=== PATIENT | male | born 1950 | race Caucasian/White ===

== ENCOUNTER 2017-03-15 14:33 | Outpatient (CLI) | payer OTHER ==
--- NOTE | 2017-03-15 15:52 | RAD ---
LUMBAR SPINE THREE VIEWS: Date: 03-15-17 Comparison: None. History: Lumbar radiculopathy, back pain radiating down bilateral hips. FINDINGS: Bilateral L3, L4, and L5 pedicle screws are present with vertically oriented interlocking rods. Inter vertebral disc device noted at L3-4. No evidence for hardware failure. Lateral imaging demonstrates n o significant anterolisthesis or retrolisthesis. Bilateral laminectomy changes noted at L3, L4, and L 5. There is atherosclerotic calcification of the abdominal aorta. No acute osseous abnormality. There is disc space narrowing at L4-5 and L5-S1. IMPRESSION: Post-operative and degenerative changes as detailed above. POS: [facility]
--- NOTE | 2017-03-15 16:10 | MRI ---
MRI LUMBAR SPINE WITHOUT CONTRAST: HISTORY: M54.16, radiculopathy lumbar region. COMPARISON: None. FINDINGS: There is a lobular cyst in the superior pole left kidney. No adenopathy. Paraspinal musculature is symmetric. Aortic contour is nonaneurysmal. The conus medullaris terminates at the superior end plate of L1. The background marrow signal is normal. There is posterior spinal fusion hardware at L3-L5 with disk diskectomy changes at L3-4. There is anterolisthesis of L4 over L5 measuring approximately 4 mm. Levels are as follows: T12-L1: No significant neural foraminal or spinal canal narrowing. L1-2: No significant neural foraminal or spinal canal narrowing. Normal disks. L2-3: There is a central posterior disk protrusion extending to both paracentral areas. This narrow s the spinal canal severely, measuring approximately 3 mm. There is thickening of the ligamentum fla vum as well as hypertrophic degenerative disease of the facets. L3-4: Diskectomy changes. There appears to be some soft tissue on the exiting L3 nerve roots bilate rally which narrows the neural foramina. The spinal canal is not narrowed. L4-5: Anterolisthesis is present approximately 4 mm. Mild narrowing of the right neural foramen due to hypertrophic facet changes. L5-S1: Moderate disk desiccation. There is circumferential disk bulge. Mild bilateral neural patricia inal narrowing. IMPRESSION: 1. Posterior central and paracentral disk protrusion at L2-3 causing severe canal narrowing to appro ximately 3 mm with associated ligamentum flavum hypertrophy. There is also some 2-3 mm anterolisthes is at this level with neural foraminal narrowing. 2. Concern for possible scar along the L3-4 nerve roots bilaterally. 3. Low-grade 2-3 anterolisthesis of L4-5 with moderate bilateral neural foraminal narrowing. 4. Edema within the midline paraspinal musculature bilaterally at L4-5 and L5-S1, likely postsurgica l in nature. No definite fluid collection is appreciated, although limited without intravenous contr ast. CODE T POS: [facility]
--- NOTE | 2017-03-15 16:37 | CT ---
CT OF THE LUMBAR SPINE 03/15/17 HISTORY: Back pain radiating into bilateral hips and legs. TECHNIQUE: Serial axial CT imaging is obtained at 2 mm intervals from the lower lumbar spine through the lower s acrum without contrast. Coronal and sagittal reformatted imaging obtained. FINDINGS: Postoperative clips are noted in the imaged pelvis, incompletely assessed on this exam. There is scat tered atherosclerotic calcifications of the abdominal aorta and its branches. There is a partially imaged low density lesion associated with the left kidney, likely representing a n incompletely imaged cyst, measuring up to 3 cm. Punctate upper pole left renal stone noted. Posterior fusion hardware is present, which includes bilateral L3, L4, and L5 pedicle screws with sravani tically oriented interlocking rods. There is a disc device at the L3-4 level. Evaluation for central canal and/or neural foraminal stenosis is limited on noncontrast enhanced rout ine CT exam. T12-L1: No osseous cause of significant central canal or neural foraminal stenosis. L1-2: No osseous cause of significant central canal or neural foraminal stenosis. L2-3: There is mild bilateral facet hypertrophy. There is a prominent disc bulge present with at leas t a moderate, if not severe central canal stenosis suspected at L2-3. There is probable at least mild bilateral neural foraminal stenosis. L3-4: Bilateral laminectomy changes are noted. There is a foraminal disc protrusion noted on the left with probable mild left neural foraminal stenosis. No obvious central canal or right neural foramin al stenosis. L4-5: Anterolisthesis of L4 on L5 measures approximately 5 mm. Mild bilateral facet hypertrophy. Probable mild bilateral neural foraminal stenosis. L5-S1: There is disc space narrowing, degenerative end plate change and vacuum disc formation. Mild d isc bulge suspected with no significant central canal or neural foraminal stenosis. There is no worrisome lytic or blastic bone lesion seen. IMPRESSION: 1. Multilevel postoperative change seen within the lumbar spine. There are areas of central joseline l and neural foraminal stenosis as documented above, most significant at the L2-3 level where there i s probably severe central canal stenosis on the basis of disc bulge. Findings could be better assesse d via CT myelogram of the lumbar spine. 2. Incompletely imaged low density lesion within the left kidney, likely and incompletely imaged left renal cyst. Recommend followup assessment with ultrasound of the kidneys. Code T POS: [facility]
== END 2017-03-15 14:34 | disposition home or self-care (01) ==
LOC: SCSCT 14:33
PROVIDERS: ATTEND Neurological Surgery
DX: M51.16 Intervertebral disc disorders with radiculopathy, lumbar region (principal); M47.26 Other spondylosis with radiculopathy, lumbar region; M48.061 Spinal stenosis, lumbar region without neurogenic claudication; M99.53 Intervertebral disc stenosis of neural canal of lumbar region; M43.16 Spondylolisthesis, lumbar region; R60.0 Localized edema; Z98.890 Other specified postprocedural states
CPT/HCPCS: 72100; 72131; 72148

== ENCOUNTER 2017-06-16 13:52 | Outpatient (CLI) | payer MEDICARE ==
--- NOTE | 2017-06-16 15:23 | CT ---
CT LUMBAR SPINE WITHOUT CONTRAST: Date: 06/16/17 HISTORY: Status post revision of previous lumbar fusion. COMPARISON: 03/15/17. TECHNIQUE: A noncontrast CT of the lumbar spine is performed in the axial plane. Sagittal and coronal reformatte d images are submitted for interpretation. FINDINGS: There are interval surgical changes. Specifically, there has been removal of transpedicular screws at L3, L4, and L5. There is interval placement of new bilateral transpedicular screws at L2 and L3. No perihardware lucency. Redemonstration of a disc prosthesis at L3-L4. Persistent anterolisthesis of L4 upon L5 (4.0 mm). Interval placement of a prosthesis at the L2-L3 disc space. Interval loss of vertebral body height suggesting indeterminate fracture at L1. Visualized heart demonstrates cardiomegaly. There are bilateral pleural effusions with adjacent paren chymal changes. Attenuation of solid organs is grossly unremarkable. There appears to be a cyst invol ving the left kidney, incompletely evaluated and unchanged from the exam performed earlier this year. There is vacuum disc phenomenon at L5-S1, unchanged. T9-T10, T10-T11, T11-T12: No significant central canal stenosis. Neural tormina are patent. T12-L1: No significant central canal stenosis. Neural foramina are patent. L1-L2: No significant central canal stenosis. Patent neural foramen. L2-L3: There is a disc prosthesis. Evaluation is limited by beam attenuation artifact. Posterior decompressi on secondary to laminectomy change is noted. No significant central canal stenosis. Mild bilateral fo raminal narrowing. L3-L4: There is a disc prosthesis. Posterior decompression is identified. There is suggestion of scar tissue at the defect site. No high grade central canal stenosis. Neural foramina are patent. L4-L5: Posterior decompression. No significant central canal stenosis. Generalized disc bulge is identified. Neural foramina are mildly narrowed. L5-S1: Vacuum disc phenomenon. No high grade central canal stenosis. Posterior decompression is identified. Mild bilateral neural. Foraminal narrowing. IMPRESSION: 1. Surgical revision as described above. New fusion hardware at L2 and L3. New disc prosthesis at L2 -L3. 2. Persistent anterolisthesis of L4 upon L5. Stable decompressive laminectomy defects. 3. Varying degrees of central canal stenosis and foraminal narrowing as detailed above. 4. Interval development of a mild compression fracture at T12, age-indeterminate. Correlate clinical ly. POS: [facility]
== END 2017-06-16 13:53 | disposition home or self-care (01) ==
LOC: SCSCT 13:52
PROVIDERS: ATTEND Neurological Surgery
DX: Z09 Encounter for follow-up examination after completed treatment for conditions other than malignant neoplasm (principal); M48.061 Spinal stenosis, lumbar region without neurogenic claudication; M99.83 Other biomechanical lesions of lumbar region; Z87.81 Personal history of (healed) traumatic fracture; Z98.890 Other specified postprocedural states
CPT/HCPCS: 72131

== ENCOUNTER 2017-09-08 10:05 | Outpatient (CLI) | payer MEDICARE ==
--- NOTE | 2017-09-08 11:23 | RAD ---
LUMBAR SPINE MINIMUM OF 4 VIEWS: History Low back pain. COMPARISON: Lumbar spine radiographs 1 . FINDINGS: Posterior spinal fusion at L2-3 with diskectomy changes. There are also laminectomy changes at L3-4 with diskectomy. No significant listhesis. Bilateral hip arthroplasties. No translation with flexion or extension. New from the comparison examination is L1 superior end plate compression fracture approximately 15% a nterior height loss. IMPRESSION: 1. New from the comparison examination L1 superior end plate compression deformity with 15% anterior height loss. 2. Revised posterior spinal fusion hardware. POS: [facility]
== END 2017-09-08 10:06 | disposition home or self-care (01) ==
LOC: SCSRAD 10:05
PROVIDERS: ATTEND Neurological Surgery
DX: M54.5 Low back pain (principal); Z98.1 Arthrodesis status
CPT/HCPCS: 72110

== ENCOUNTER 2017-12-29 10:03 | Outpatient (CLI) | payer MEDICARE ==
--- NOTE | 2017-12-29 11:33 | ULT ---
RENAL ULTRASOUND: DATE: 12/29/2017. PROVIDED CLINICAL HISTORY: Chronic kidney disease. FINDINGS: The right kidney measures about 10.2 x 5.2 x 5.4 cm and demonstrates no evidence for hydronephrosis o r mass. The left kidney measures about 11.6 x 7.5 x 6.1 cm. There is a cystic structure at the superior pole of the left kidney measuring approximately 3.8 cm in greatest dimension. Some of the plummer of this process are not well defined and this is incompletely characterized. There is no evidence for hydron ephrosis. The urinary bladder is decompressed and not evaluated. IMPRESSION: 1. No evidence for hydronephrosis. 2. Cystic structure involving the superior aspect of the left kidney, incompletely characterized on the basis of this study. The visualized portions of this process on CT examination of 06/16/2017 appea jeff izaguirre. Recommend sonographic followup. POS: [facility]
== END 2017-12-29 10:04 | disposition home or self-care (01) ==
LOC: SCSULT 10:03
PROVIDERS: ATTEND Internal Medicine
DX: N18.3 Chronic kidney disease, stage 3 (moderate) (principal)
CPT/HCPCS: 76770

== ENCOUNTER 2018-01-12 09:28 | Outpatient (CLI) | payer MEDICARE ==
--- NOTE | 2018-01-12 11:30 | CT ---
ABDOMEN CT SCAN WITH AND WITHOUT IV CONTRAST WITH MULTIPHASE IMAGING: HISTORY: A 67-year-old male with a history of hematuria. FINDINGS: There are some minimal pleural thickening and pleural-based parenchymal changes in the left lower lob e. The visualized liver, gallbladder, pancreas, and spleen show no acute process. Small hiatal concha ia. There is a bilobed cyst in the upper pole of the left kidney measuring approximately 4 cm transv ersely and approximately 5.3 cm in the craniocaudal dimension. There are at least 2 other small low- attenuation foci within the left kidney which are incompletely characterized on this study and could represent small cysts, particularly complicated cysts. A 0.7 cm diameter nonobstructing left renal c alculus. Midline anterior abdominal wall defect with widely spaced right and left rectus muscles, th is area could well be related to some type of prior surgery. There are surgical changes in the regio n of the right colon. Extensive postop changes of the lumbar spine. The pelvis is not included on t his study. There was no delayed imaging performed for CT urogram. IMPRESSION: Nonobstructing left renal calculus. Bilobed cyst involving the upper pole of the left kidney with at least 2 smaller low-attenuation foci inadequately characterized on this study because of their size. Consider a 1-year followup examination. Postop changes involving the anterior abdominal wall as we ll as right colon surgery and low back surgery. The pelvis was not evaluated on this study. POS: [facility]
== END 2018-01-12 09:29 | disposition home or self-care (01) ==
LOC: SCSCT 09:28
PROVIDERS: ATTEND Urology
DX: R31.9 Hematuria, unspecified (principal); N20.0 Calculus of kidney; N28.1 Cyst of kidney, acquired; Z98.890 Other specified postprocedural states
CPT/HCPCS: 74170; 82565

== ENCOUNTER 2018-09-25 09:59 | Outpatient (CLI) | payer MEDICARE ==
[~2018-09-25 09:59] MED LIST: Iopamidol 300 61% 100 ML VIAL FS ONE
--- NOTE | 2018-09-25 13:25 | CT ---
CT ABDOMEN AND PELVIS WITH IV CONTRAST 09/25/2018 CLINICAL INFORMATION: Incisional hernia. COMPARISON: 01/12/2018 Technique: Multiple contiguous axial CT images are obtained through the abdomen and pelvis with IV contrast. Cor onal reformatted images are provided. FINDINGS: Lower Chest: The wedge-shaped parenchymal density in the left lower lobe is again seen and stable com pared to prior study, and this may be related to pleural and parenchymal scarring. There is mild pleural thickening seen posteriorly on the left. No discrete pulmonary nodule or mass is seen either lung base. Vessels: Vascular calcifications are seen in the abdominal aorta and involving the iliac arteries. Abdomen: Portal vein:Patent Gallbladder: Within normal limits for CT imaging. Liver: within normal limits. Spleen: within normal limits. Pancreas: within normal limits. Adrenals: within normal limits. Kidneys: Lobulated superior pole left renal cyst is again seen and stable measuring approximately 5.1 cm. Stable inferior pole left renal calculus is again noted. Subcentimeter too small to characterize hypodense lesions are again seen in the left kidney. There is no hydronephrosis. The rig ht kidney demonstrates a normal CT appearance. Bowel: There is colonic diverticulosis present. Small bowel is normal in caliber. Appendix: Not visualized. There is linear increased density at the cecal apex. Findings may relate to prior appendectomy. Peritoneum: No ascites or free air; no fluid collection. Mesentery and Retroperitoneum: No enlarged mesenteric or retroperitoneal lymph nodes. Abdominal Wall: As noted on the prior exam, there is a defect in the anterior abdominal wall with wid wilfredo space rectus musculature with loops of bowel extending to the most anterior aspect of the abdomen through this defect. This is stable compared to the prior study. Pelvis: Reproductive Organs: There is artifact from bilateral total hip prostheses which limits evaluation of the pelvic structures. However, multiple surgical clips are seen in the pelvis, and findings could potentially be related to prior prostatectomy. Clinical correlation is suggested. Pelvis within normal limits. Bladder: Decompressed and mostly obscured due to artifact from bilateral total hip prostheses. Bones: Postoperative and degenerative changes of the lumbar spine are again seen. Bilateral total hip prostheses are present. Laminotomy defects are seen at the level of spinal hardware. Low-density areas seen posterior to the level of laminectomy defect in the lumbar spine which is stable from the prior exam. IMPRESSION: 1. Stable CT abdomen and pelvis without acute findings. 2. Findings likely attributable to pleural and parenchymal scarring left lung base. 3. Stable lobulated left renal cyst with subcentimeter too small to characterize hypodense lesions le ft kidney. 4. Nonobstructing left renal calculus. 5. Stable midline abdominal wall defect. There is no evidence of a bowel obstruction. 6. Colonic diverticulosis. 7. Probable prostatectomy. 8. Postsurgical and degenerative changes lumbar spine.
== END 2018-09-25 10:00 | disposition home or self-care (01) ==
LOC: SCSCT 09:59
PROVIDERS: ATTEND Surgery
DX: K43.2 Incisional hernia without obstruction or gangrene (principal); N28.1 Cyst of kidney, acquired; N20.0 Calculus of kidney; K57.30 Diverticulosis of large intestine without perforation or abscess without bleeding; M47.816 Spondylosis without myelopathy or radiculopathy, lumbar region; N28.9 Disorder of kidney and ureter, unspecified; Z96.641 Presence of right artificial hip joint; Z96.642 Presence of left artificial hip joint
CPT/HCPCS: 74177; 82565; Q9967

== ENCOUNTER 2018-10-05 09:56 | Outpatient (CLI) | payer MEDICARE ==
[2018-10-05 11:16] LABS: Hemoglobin 13.6 g/dL (14.0-18.0); Mean Corpuscular HGB CONC 33.7 g/dL (32.0-36.0); Mean Corpuscular Hemoglobin 30.7 pg (27.0-31.0); Mean Corpuscular Volume 91.1 fL (78.0-98.0); Mean Platelet Volume 8.7 fL (7.4-10.4); Platelet Count 149 thou/uL (130-400); RBC Distribution Width 13.1 % (11.5-14.5); Red Blood Cell (RBC) Count 4.43 mill/uL (4.70-6.10); White Blood Cell (WBC) Count 5.2 thou/uL (4.8-10.8)
[2018-10-05 11:46] LABS: Anion Gap 10 mmol/L (10-20); BUN (Urea Nitrogen) 22 mg/dL (8.4-25.7); Calc. Creatinine Clearance 0 mL/min (70-130); Calcium 10.1 mg/dL (7.8-10.44); Carbon Dioxide 26 mmol/L (23-31); Chloride 105 mmol/L (98-107); Estimated GFR-MDRD 43; Glucose 106 mg/dL (80-115); Potassium 3.9 mmol/L (3.5-5.1); Sodium 137 mmol/L (136-145)
== END 2018-10-05 09:57 | disposition home or self-care (01) ==
LOC: LABBT 09:56
PROVIDERS: ATTEND Surgery
DX: Z01.818 Encounter for other preprocedural examination (principal); K43.2 Incisional hernia without obstruction or gangrene
CPT/HCPCS: 80048; 85027; 93005; 93010

== ENCOUNTER 2018-10-10 06:47 | Day surgery (SDC) | payer MEDICARE ==
[2018-10-10] MEDS ORDERED: Bupivacaine/Epinephrine 0.25% 30 ML VIAL ONE (08:18)
[2018-10-10] MEDS ORDERED: Fentanyl 100 MCG/2 ML VIAL ONE ×6 (08:20→12:27)
[2018-10-10] MEDS ORDERED: Midazolam HCl 2 mg/2 ml Vial ONE (08:20)
[2018-10-10] MEDS ORDERED: Dextrose 5% in Water 1,000 ML IV PRN (11:18)
[2018-10-10] MEDS ORDERED: hydrALAZINE 20 MG/ML VIAL SLOW IVP PRN (11:18)
[2018-10-10] MEDS ORDERED: Dextrose 50% Abboject 50 ML SYRINGE SLOW IVP PRN (11:18)
[2018-10-10] MEDS ORDERED: HYDROmorphone 2 MG/ML VIAL ONE (11:19)
[2018-10-10] MEDS ORDERED: Naloxone HCl 0.4 mg/ml Vial IV PRN ×2 (11:29→12:59)
[2018-10-10] MEDS ORDERED: HYDROmorphone 2 MG/ML VIAL SLOW IVP PRN (11:29)
[2018-10-10] MEDS ORDERED: Zolpidem Tartrate 5 MG TAB PO PRN ×2 (11:29→12:59)
[2018-10-10] MEDS ORDERED: diphenhydrAMINE 50 MG/ML VIAL IVP PRN ×2 (11:29→12:59)
[2018-10-10] MEDS ORDERED: Promethazine HCl 25 MG/ML VIAL IM PRN ×3 (11:29→12:59)
[2018-10-10] MEDS ORDERED: diphenhydrAMINE 50 MG/ML VIAL IM PRN ×2 (11:29→12:59)
[2018-10-10] MEDS ORDERED: Ketorolac Tromethamine 30 MG/ML VIAL IVP PRN ×2 (11:29)
[2018-10-10] MEDS ORDERED: Ondansetron HCl/PF 4 MG/2 ML Vial IVP PRN (11:29)
[2018-10-10] MEDS ORDERED: Ondansetron PF 4 MG/2 ML Vial IVP PRN ×2 (11:29→12:59)
[2018-10-10] MEDS ORDERED: Promethazine HCl 25 MG/ML VIAL SLOW IVP PRN (11:29)
[2018-10-10] MEDS ORDERED: Morphine CADD 1 MG/ML CADD IVPB PRN (11:29)
[2018-10-10] MEDS ORDERED: diphenhydrAMINE 25 MG CAP PO PRN ×2 (11:29→12:59)
[2018-10-10] MEDS ORDERED: Communication Order-Pharmacy FS SCH ×2 (11:30→13:00)
[2018-10-10] MEDS ORDERED: Morphine Sulfate 100 MG in Dextrose 5% in Water 98 ML IV SCH (11:48)
[2018-10-10] MEDS ORDERED: Promethazine HCl 25 MG/ML VIAL ONE (11:57)
[2018-10-10] MEDS ORDERED: Acetaminophen 1,000 MG in Premix Bag 1 BAG IVPB SCH (12:00)
[2018-10-10] MEDS ORDERED: Morphine 4 MG/ML VIAL ONE ×3 (12:35→13:17)
[2018-10-10] MEDS ORDERED: Ketamine 50 MG/ML (10ML VIAL) ONE (12:52)
[2018-10-10] MEDS ORDERED: Labetalol HCl 100 MG/20 ML VIAL ONE (12:56)
[2018-10-10] MEDS ORDERED: Dexamethasone 20 MG/5 ML VIAL ONE (12:56)
[2018-10-10] MEDS ORDERED: Lidocaine 1% PF 5 ML VIAL ONE (12:56)
[2018-10-10] MEDS ORDERED: PROPOFOL 200 MG/20 ML VIAL ONE (12:56)
[2018-10-10] MEDS ORDERED: Rocuronium Bromide 10 MG/ML (10ML VIAL) ONE (12:56)
[2018-10-10] MEDS ORDERED: Ondansetron PF 4 MG/2 ML Vial ONE (12:56)
[2018-10-10] MEDS ORDERED: Glycopyrrolate 0.2 MG/ML 5 ML SYRINGE ONE (12:56)
[2018-10-10] MEDS ORDERED: HYDROmorphone 10 mg/100 ml CADD IVPB PRN (12:59)
[2018-10-10] MEDS ORDERED: Pregabalin 50 MG CAP PO SCH (15:00)
[2018-10-10] MEDS: Acetaminophen 1,000 MG in Premix Bag 1 BAG IVPB SCH ×2 (16:10→19:57)
[2018-10-10] MEDS: Sodium Chloride 0.9% 1,000 ML IV SCH ×2 (16:11→23:13)
[2018-10-10] MEDS: CEFAZOLIN 2 GM in Premix Bag 1 BAG IVPB SCH ×2 (16:11→23:13)
[2018-10-10 16:16] VITALS: BMI 31.6
[2018-10-10] MEDS: Famotidine 20 MG TAB PO SCH (19:57)
[2018-10-10] MEDS: Enoxaparin Sodium 40 MG/0.4 ML SYRINGE SC SCH (19:57)
[2018-10-10] MEDS: Famotidine/PF 20 mg/2ml Vial SLOW IVP SCH (22:08)
[2018-10-10] MEDS: Ketorolac Tromethamine 30 MG/ML VIAL IVP PRN (23:13)
[2018-10-11] MEDS: Acetaminophen 1,000 MG in Premix Bag 1 BAG IVPB SCH ×2 (02:07→07:34)
[2018-10-11 06:11] LABS: #Lymphocytes 1.9 thou/uL (1.20-3.40); #Monocytes 0.9 thou/uL (0.11-0.59); #Neutrophils 8.3 thou/uL (1.40-6.50); %Eosinophils 0.1 % (0.0-10.0); %Lymphocytes 16.9 % (21.0-51.0); %Monocytes 7.8 % (0.0-10.0); %Neutrophils 75.3 % (42.0-75.0); Hemoglobin 12.1 g/dL (14.0-18.0); Mean Corpuscular HGB CONC 32.5 g/dL (32.0-36.0); Mean Corpuscular Volume 92.1 fL (78.0-98.0); Mean Platelet Volume 8.9 fL (7.4-10.4); Platelet Count 166 thou/uL (130-400); RBC Distribution Width 13.4 % (11.5-14.5); Red Blood Cell (RBC) Count 4.03 mill/uL (4.70-6.10)
[2018-10-11 06:30] LABS: Anion Gap 15 mmol/L (10-20); BUN (Urea Nitrogen) 27 mg/dL (8.4-25.7); Calc. Creatinine Clearance 45 mL/min (70-130); Calcium 8.6 mg/dL (7.8-10.44); Carbon Dioxide 24 mmol/L (23-31); Chloride 105 mmol/L (98-107); Estimated GFR-MDRD 34; Glucose 121 mg/dL (80-115); Potassium 4.9 mmol/L (3.5-5.1); Sodium 139 mmol/L (136-145)
--- NOTE | 2018-10-11 07:23 | PDOC.GSPN ---
Surgery Progress Note: Subj - Subjective Patient reports: nausea, no bowel movement (S/p midline incisional hernia repair with mesh & component separation on 10 Oct 2018. Current pain rated 7/10 ; pain goal is 5/10. + nausea. Had some GERD-type sx last night, on a rx PPI at home whose name he cannot recall. Has not passed flatus yet. No other concerns. ), no flatus, still having pain Narrative: Has not been up walking around yet. Surgery Progress Note: Obj - Vital signs Vital signs: Vital Signs - Most Recent Temp Pulse Resp BP Pulse Ox 98.2 F 75 16 147/69 H 93 L 10/11/18 04:00 10/11/18 04:00 10/11/18 04:00 10/11/18 04:00 10/11/18 04:00 - Physical Exam General: no distress, well developed, well nourished, moderate pain Cardiovascular: regular rate and rhythm Respiratory: clear to auscultation, normal expansion, normal respiratory effort Abdomen: positive bowel sounds, appropriately tender Psychiatric: memory intact, speech is normal (grossly oriented as evidenced by answering questions appropriately.) Wound: healing well (Incision well-approximated & without erythema, induration, or exudate. Drains x2 in place with small amount serosanguinous drainage noted. Drain sites are healthy.) Surgery Progress Note: Results - Labs Result Diagrams: 10/11/18 05:23 10/11/18 05:23 Lab results: Laboratory Results - last 24 hr 10/11/18 10/11/18 05:23 05:23 WBC 11.0 H RBC 4.03 L Hgb 12.1 L Hct 37.1 L MCV 92.1 MCH 30.0 MCHC 32.5 RDW 13.4 Plt Count 166 MPV 8.9 Neutrophils % 75.3 H Lymphocytes % 16.9 L Monocytes % 7.8 Eosinophils % 0.1 Basophils % 0.0 Neutrophils # 8.3 H Lymphocytes # 1.9 Monocytes # 0.9 H Eosinophils # 0.0 Basophils # 0.0 Sodium 139 Potassium 4.9 Chloride 105 Carbon Dioxide 24 Anion Gap 15 BUN 27 H Creatinine 1.99 H Estimated GFR (MDRD) 34 Glucose 121 H Calcium 8.6 Surgery Progress Note: A/P - Problem (1) S/P hernia repair Current Visit: Yes Code(s): Z98.890 - OTHER SPECIFIED POSTPROCEDURAL STATES; Z87.19 - PERSONAL HISTORY OF OTHER DISEASES OF THE DIGESTIVE SYSTEM Status: Acute - Plan Plan: s/p large midline incisional hernia repair. Overall doing well. Pain is a little more than pt would like, but this was anticipated given hx of narcotic use prior to surgery. + nausea now. BUN & creatinine somewhat elevated on today' s draw 12/03.99 vs 05 Oct 2018. -discussed importance of getting up & walking around for healing/recovery -nurse informed of nausea, will provide nausea medication -continue with pain control regimen as currently outlined & adjust as needed -continue IV hydration & anticipate re-checking renal function tomorrow -consider adding PPI for better GERD sx control Addendum - Physician - Physician Attestation Date/Time: 10/11/18 [id number] I personally performed or re-performed the physical examination and medical decision making. I have verified all student documentation or findings, including history, physical exam and/or medical decision making. Pain controll is the issue. Alamo out, no void yet TALON serosang PT to help ambulate
[2018-10-11] MEDS: Sodium Chloride 0.9% 1,000 ML IV SCH ×2 (07:34→13:59)
[2018-10-11] MEDS: CEFAZOLIN 2 GM in Premix Bag 1 BAG IVPB SCH ×3 (07:35→23:22)
[2018-10-11] MEDS: Amlodipine 5 MG TAB PO SCH (07:35)
[2018-10-11] MEDS: Famotidine/PF 20 mg/2ml Vial SLOW IVP SCH (07:35)
[2018-10-11] MEDS: Famotidine 20 MG TAB PO SCH (07:36)
[2018-10-11] MEDS: Ondansetron PF 4 MG/2 ML Vial IVP PRN (07:36)
[2018-10-11] MEDS ORDERED: Prevnar 13-Val Conj/PF 0.5 ML SYRINGE IM ONE (09:00)
[2018-10-11] MEDS: Promethazine HCl 25 MG/ML VIAL IM PRN (10:08)
--- NOTE | 2018-10-11 11:54 | OP ---
DATE OF PROCEDURE: 10/10/2018 PREOPERATIVE DIAGNOSIS: Incisional hernia, large with loss of domain. POSTOPERATIVE DIAGNOSIS: Incisional hernia, large with loss of domain. PROCEDURES PERFORMED: 1. Incisional hernia repair with mesh, Ventralex. 2. Release of bilateral component including local muscle transfer (rectus). ANESTHESIA: General. ESTIMATED BLOOD LOSS: 100 mL. COMPLICATIONS: None. DESCRIPTION OF PROCEDURE: The patient was taken to the operating room and laid supine on the operating room table. After general anesthetic was obtained, a Alamo was placed. The abdomen was shaved, prepped, and draped in a sterile fashion. His previous large wide midline incision was excised. Flaps were raised anterior to the external oblique fascia all the way towards bilateral flanks, all the way up over the course of the last rib, and all the way down to the inguinal ligaments. Meticulous hemostasis was obtained during this. The hernia sac was entered, entering the abdominal cavity. The hernia sac was debrided at the level of the fascia. There was a 6-to 7-cm fascial defect that ran the length of the former midline incision. Some intra-abdominal adhesions were taken down without injury to the intestinal contents. The anterior fascia was incised to 1.5 to 2 cm from the lateral edge of the rectus sheath and this anterior fascia was opened all the way to inguinal ligament inferiorly and over the top of the last rib superiorly. This allowed for the bilateral rectus muscle to rotate back towards the midline. Ventralex mesh brought into the sterile field. The nonadherent barrier was placed down against the abdominal viscera. U-stitches of Prolene were used to fixate the mesh with transfascial sutures circumferentially. The midline fascia was then able to be closed with little tension in the midline using #1 PDS suture. All instrument counts, needle counts, and lap counts were correct. The large subcutaneous wound was irrigated and meticulous hemostasis was obtained. A 19 round drains were brought out in bilateral lower abdomen, sewn in place using 2-0 silk suture. The subcutaneous tissues were closed using interrupted 3-0 Vicryl. The skin was closed using running 4-0 Monocryl and Dermabond. The patient was sent to Recovery in stable condition. All instrument counts, needle counts, and lap counts were correct. Job ID: [id number]
[2018-10-11] MEDS: Enoxaparin Sodium 40 MG/0.4 ML SYRINGE SC SCH (20:31)
[2018-10-11] MEDS ORDERED: Famotidine/PF 20 mg/2ml Vial SLOW IVP SCH (21:00)
[2018-10-12] MEDS: Sodium Chloride 0.9% 1,000 ML IV SCH (02:57)
[2018-10-12] MEDS: Ondansetron PF 4 MG/2 ML Vial IVP PRN ×3 (02:58→19:38)
[2018-10-12] MEDS: Promethazine HCl 25 MG/ML VIAL IM PRN (03:50)
[2018-10-12] MEDS: CEFAZOLIN 2 GM in Premix Bag 1 BAG IVPB SCH ×2 (08:13→14:37)
[2018-10-12] MEDS: Amlodipine 5 MG TAB PO SCH (08:15)
[2018-10-12] MEDS: Famotidine 20 MG TAB PO SCH (08:15)
[2018-10-12] MEDS: Ketorolac Tromethamine 30 MG/ML VIAL IVP PRN ×2 (08:16→19:38)
[2018-10-12] MEDS: Famotidine/PF 20 mg/2ml Vial SLOW IVP SCH (08:16)
[2018-10-12] MEDS ORDERED: Fentanyl 100 MCG/2 ML VIAL SLOW IVP PRN ×4 (11:39→11:40)
[2018-10-12] MEDS: oxyCODONE/Acetaminophen 5 mg/325 mg Tablet PO PRN ×2 (14:48→19:36)
[2018-10-12] MEDS: Enoxaparin Sodium 40 MG/0.4 ML SYRINGE SC SCH (21:24)
[2018-10-13] MEDS: Ketorolac Tromethamine 30 MG/ML VIAL IVP PRN ×2 (00:30→06:03)
[2018-10-13] MEDS: oxyCODONE/Acetaminophen 5 mg/325 mg Tablet PO PRN ×5 (00:35→21:29)
[2018-10-13] MEDS: CEFAZOLIN 2 GM in Premix Bag 1 BAG IVPB SCH ×3 (00:36→15:28)
[2018-10-13] MEDS: Famotidine 20 MG TAB PO SCH (08:17)
[2018-10-13] MEDS: Amlodipine 5 MG TAB PO SCH (08:18)
[2018-10-13] MEDS: Famotidine/PF 20 mg/2ml Vial SLOW IVP SCH (08:38)
--- NOTE | 2018-10-13 12:18 | PDOC.GSPN ---
Surgery Progress Note: Subj - Subjective Patient reports: no new complaints, pain well controlled Surgery Progress Note: Obj - Vital signs Vital signs: Vital Signs - Most Recent Temp Pulse Resp BP Pulse Ox 98.7 F 60 20 168/78 H 92 L 10/13/18 07:51 10/13/18 07:51 10/13/18 07:51 10/13/18 08:18 10/13/18 07:51 - Physical Exam General: no distress Abdomen: soft, appropriately tender Wound: healing well (TALON's serosang) Surgery Progress Note: Results - Labs Result Diagrams: 10/11/18 05:23 10/11/18 05:23 Surgery Progress Note: A/P - Problem (1) S/P hernia repair Current Visit: Yes Code(s): Z98.890 - OTHER SPECIFIED POSTPROCEDURAL STATES; Z87.19 - PERSONAL HISTORY OF OTHER DISEASES OF THE DIGESTIVE SYSTEM Status: Acute - Plan Plan: POD 3 component separation -Home tomorrow -Already on his home percocet, he will continue that at home and already has those pills from his PCP
[2018-10-13] MEDS: Enoxaparin Sodium 40 MG/0.4 ML SYRINGE SC SCH (21:30)
[2018-10-14] MEDS: CEFAZOLIN 2 GM in Premix Bag 1 BAG IVPB SCH ×2 (00:17→09:31)
[2018-10-14] MEDS: oxyCODONE/Acetaminophen 5 mg/325 mg Tablet PO PRN ×3 (02:42→10:30)
[2018-10-14] MEDS: Amlodipine 5 MG TAB PO SCH (09:30)
[2018-10-14] MEDS: Famotidine 20 MG TAB PO SCH (09:30)
[2018-10-14] MEDS: Famotidine/PF 20 mg/2ml Vial SLOW IVP SCH (10:06)
--- NOTE | 2018-10-14 12:32 | PRG ---
DATE OF SERVICE: 10/14/2018 SUBJECTIVE: Mr. Jenkins is seen for Dr. Gutierrez today. He is tolerating his diet. He is passing flatus. He is not having nausea or vomiting. OBJECTIVE: VITAL SIGNS: Temperature 98.1 degrees, pulse 60, blood pressure 169/90. GENERAL: He has TALON drains right and left, have put out 50 and 40 mL last 24 hours respectfully. LUNGS: Clear to auscultation. CARDIAC: Regular rate and rhythm without murmur or gallop. ABDOMEN: Soft, nontender. Surgical wound looks good. ASSESSMENT AND PLAN: Doing well postoperatively. Plan to discharge home. He has Percocet at home. He will be instructed on TALON drain care. He will see Dr. Gutierrez next week for evaluation for probable TALON drain removal. He is instructed personally by me to how to strip the tubing and his nurse will show him again how to empty the drains and record the outputs. He should be active ambulating, but no lifting over 25 pounds for 8 weeks. Job ID: [id number]
[2018-10-14 13:33] VITALS: BP 168/85; TEMP 98.8
--- NOTE | 2018-10-17 02:41 | PQF ---
[employer] Crystal Reports Winform Viewer SUKHJINDER CHUA BRYAN DAVID MD [id number] SURG [id number] CLINICAL DOCUMENTATION CLARIFICATION FORM: POST DISCHARGE Addendum to original discharge summary date: ____ Late entry note date: __ DATE: 10/17/18 ATTN:Adair Evangelista Please exercise your independent, professional judgment in responding to the clarification form. Clinical indicators are provided on the bottom of this form for your review Can you please specify the clinical significance of the indicators below? Please check appropriate box(s): [ ] acute kidney injury [ ] abnormal laboratory findings [ x ] insignificant laboratory findings [ ] Other diagnosis please specify [ ] Unable to determine In addition, please specify: Present on Admission (POA): [ x ] Yes [ ] No [ ] Unable to determine For continuity of documentation, please document condition throughout progress notes and discharge summary. Thank You. CLINICAL INDICATORS Laboratory- 10/11- "Creatinine 1.99H mg/dl" General Surgery PN 10/11 pg.1- "+ nausea, had some GERD type sx last night" General Surgery PN 10/11 pg.3- "BUN and Creatinine somewhat elevated om today's draw 27/1.99 vs 05 Oct 2018" General Surgery PN 10/11 pg.3- "Continue IV Hydration and anticipate re-checking renal function tomorrow" RISK FACTORS Cholesterol- Physician Office H and P pg.1 Hypertension-Physician Office H and P pg.1 S/p large midline incisional hernia repair- General Surgery PN 10/11 pg.3 TREATMENT IV Fluids- APR 21 Re-checking renal function- General Surgery PN 10/11 pg.3 2014 [employer]. All Rights Reserved Rob [email or web address] [not provided] (This form is maintained as a part of the permanent medical record) [facility]
== END 2018-10-14 14:11 | disposition home or self-care (01) ==
LOC: SDC 06:47 → SURG B 12:30 → UNDOADMIN 12:30 → UNDODISIN 10-14 14:11 → SDC 10-14 14:11
PROVIDERS: ATTEND Surgery
PROC: 0WUF0JZ Supplement Abdominal Wall with Synthetic Substitute, Open Approach (ICD-10-PCS; principal; 2018-10-10)
DX: K43.2 Incisional hernia without obstruction or gangrene (principal); K66.0 Peritoneal adhesions (postprocedural) (postinfection); I10 Essential (primary) hypertension; E78.5 Hyperlipidemia, unspecified; M10.9 Gout, unspecified; Z87.891 Personal history of nicotine dependence; Z79.82 Long term (current) use of aspirin; Z79.899 Other long term (current) drug therapy
CPT/HCPCS: 36415; 80048; 85025; 90471; 90670; G0009; J0131; J0360; J0690; J1100; J1170; J1650; J1885; J2001; J2250; J2270; J2274; J2405; J2550; J2704; J3010; J7070; S0028

== ENCOUNTER 2019-10-19 11:02 | Outpatient (CLI) | payer MEDICARE ==
--- NOTE | 2019-10-19 14:07 | CT ---
CT ABDOMEN AND PELVIS WITH ORAL AND IV CONTRAST: 10/19/19 HISTORY: Diverticulitis, diarrhea. COMPARISON: 09/25/18 and 01/12/18. 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 No calcified gallstones are seen. The liver, spleen, pancreas, adrenal gland and right kidney a ppear normal. The lobulated superior pole left renal cyst measures about 6 cm (previously 5 cm). Infe rior pole left renal calculus is stable. No hydronephrosis is seen on either side. The tiny hypodense lesions in the left kidney are stable. No free air, free fluid or lymphadenopathy is noted in the abdomen or pelvis. There are vascular calc ifications without evidence of aneurysmal dilatation of the abdominal aorta. There are postop changes with metallic hardware in the lumbar spine and both hip joints. The small bowel loops are not abnormally dilated. There is colonic diverticulosis without diverticuli tis. Interval postop changes of abdominal wall repair was seen. Evaluation of pelvic contents was limited due to artifact from adjacent hip arthroplasties. Postop ch anges in the pelvis are likely from previous prostatectomy. IMPRESSION: No definite evidence of acute process. POS: [id number]
[2019-10-21 18:11] LABS: EliA Celiac New Method **** NEW METHOD ****; t-Transglutaminase (tTG) IgA 0.3 EliAU/mL (<7 Negative)
== END 2019-10-19 11:03 | disposition home or self-care (01) ==
LOC: SCSCT 11:02
PROVIDERS: ATTEND Internal Medicine Gastroenterology
DX: R19.7 Diarrhea, unspecified (principal); K57.92 Diverticulitis of intestine, part unspecified, without perforation or abscess without bleeding
CPT/HCPCS: 74177; 82565; 83516

== ENCOUNTER 2021-08-10 11:46 | Outpatient (CLI) | payer MEDICARE | END 2021-08-10 11:47 | disposition home or self-care (01) | LOC: BICRAD 11:46 | PROVIDERS: ATTEND Internal Medicine | DX: J20.9 Acute bronchitis, unspecified (principal) | CPT/HCPCS: 71046 ==

== ENCOUNTER 2022-06-14 13:02 | Outpatient (CLI) | payer MEDICARE | END 2022-06-14 13:03 | disposition home or self-care (01) | LOC: BICCT 13:02 → CT 13:03 | PROVIDERS: ATTEND Internal Medicine | DX: Z12.2 Encounter for screening for malignant neoplasm of respiratory organs (principal); Z87.891 Personal history of nicotine dependence | CPT/HCPCS: 71271 ==